=== PATIENT | male | born 1990 | race Caucasian/White ===

== ENCOUNTER 2017-07-02 12:48 | Emergency (ER) | payer OTHER ==
--- NOTE | 2017-07-02 13:05 | NUR ---
PT IS NOT IN ED WAITING ROOM
== END 2017-07-02 13:49 | disposition left against medical advice (07) ==
LOC: ER 12:51
DX: R11.0 Nausea (principal); Z53.21 Procedure and treatment not carried out due to patient leaving prior to being seen by health care provider